=== PATIENT | female | born 1970 | race Caucasian/White ===

== ENCOUNTER → 2018-04-10 | Outpatient (CLI) | payer OTHER ==
[~2018-04-10] MED LIST: ACET500 PO; BUPR100 PO; CALCIUM PO; CHOL10002 PO; Cipro500 MG PO; DAILY VALUE1 EACH PO; Flagyl500 MG PO; HYDACE5 PO; HYDACE5325 PO; IBUP800 PO; IRON150C PO; MEDR10 PO; MEDR5 PO; METPRE4DP PO; NAPR220 PO; OXYC5 PO; Triamcinolone A15 GM TOP; Ultram50 MG PO
== END | disposition home or self-care (01) ==
LOC: LAB SHORT 15:35 → LAB EV 15:35
DX: S41.101A Unspecified open wound of right upper arm, initial encounter (principal)
CPT/HCPCS: 87070; 87205

== ENCOUNTER 2018-07-12 21:38 | Emergency (ER) | payer OTHER ==
[~2018-07-12] VITALS: Ht 165.1 cm; Wt 65.8 kg
[2018-07-12] MEDS ORDERED: Cyclobenzaprine5 MG PO (23:28)
[2018-07-12] MEDS ORDERED: IBUP600 PO (23:28)
== END 2018-07-13 00:29 | disposition home or self-care (01) ==
LOC: ER 21:38
DX: S83.412A Sprain of medial collateral ligament of left knee, initial encounter (principal); F17.210 Nicotine dependence, cigarettes, uncomplicated; Z88.5 Allergy status to narcotic agent; Z88.8 Allergy status to other drugs, medicaments and biological substances; V19.3XXA Pedal cyclist (driver) (passenger) injured in unspecified nontraffic accident, initial encounter
CPT/HCPCS: 29505; 73564; 99285-25

== ENCOUNTER 2019-03-13 13:20 | Emergency (ER) | payer OTHER ==
[~2019-03-13] VITALS: Ht 167.6 cm; Wt 65.8 kg
[~2019-03-13 13:20] MED LIST changes: +Cyclobenzaprine5 MG PO; +IBUP600 PO
[2019-03-13] MEDS ORDERED: PRED10 PO (16:06)
[2019-03-13] MEDS ORDERED: Norco 5-325 Ta1 EACH PO (16:06)
== END 2019-03-13 16:37 | disposition home or self-care (01) ==
LOC: ER 13:20
DX: M54.17 Radiculopathy, lumbosacral region (principal); Z88.5 Allergy status to narcotic agent; Z88.8 Allergy status to other drugs, medicaments and biological substances; F17.200 Nicotine dependence, unspecified, uncomplicated
CPT/HCPCS: 72100; 99283-25

== ENCOUNTER 2021-02-16 12:16 | Emergency (ER) | payer OTHER ==
[~2021-02-16] VITALS: Ht 167.6 cm; Wt 70.3 kg
[~2021-02-16 12:16] MED LIST changes: +CEPH500 PO; +Norco 5-325 Ta1 EACH PO; +PRED10 PO
[2021-02-16] MEDS ORDERED: CLIN100S VAG (13:47)
== END 2021-02-16 14:03 | disposition home or self-care (01) ==
LOC: ER 12:16
DX: B34.9 Viral infection, unspecified (principal); F17.210 Nicotine dependence, cigarettes, uncomplicated; Z88.5 Allergy status to narcotic agent; Z20.822 Contact with and (suspected) exposure to COVID-19
CPT/HCPCS: 71045; 99283-25